=== PATIENT | female | born 1985 | race Two or more races ===

== ENCOUNTER 2025-04-03 20:42 | Observation (INO) | payer OTHER, SELFPAY ==
[2025-04-03 20:44] VITALS: BMI 35.4
--- NOTE | 2025-04-03 20:56 | XR_ITS ---
EXAMINATION: AP chest single view TECHNIQUE: AP portable upright chest single view Date and time: April 03, 2025, 2140 hours INDICATIONS: Stroke alert today FINDINGS: No significant cardiac enlargement No aspiration pneumonia. The osseous structures are intact IMPRESSION: No active disease
--- NOTE | 2025-04-03 20:56 | XR_ITS ---
Examination: CT brain head without contrast. 2-D sagittal coronal reconstructions Date and time of exam: April 03, 2025, 2108 hours INDICATION: Stroke alert, onset left-sided body numbness and slurred speech beginning 1 hour ago CTDI: vol (mGy): 53.8 DLP: (mGycm): 1029 Technique: Multiple CT axial sections of the brain have been obtained, 5 mm slice thickness. Contrast has not been administered. 2-D sagittal, coronal reconstructions have been obtained Low dose protocols were performed. One or more of the following dose reduction techniques were used; automated exposure control, adjustment of the mA and/or KV according to patient size, use of iterative reconstruction technique. Findings: No significant ventricular enlargement. Intra-axial or extra-axial hemorrhage density is not seen. No mass effect or midline shift Basal cisterns are not remarkable. Fourth ventricle is midline. Cranial vault intact. Impression: Negative for acute hemorrhage, mass effect or midline shift
--- NOTE | 2025-04-03 20:56 | XR_ITS ---
Examination: CTA carotids with intravenous contrast CTA brain, head with intravenous contrast. 2-D sagittal, coronal reconstructions. 3-D reconstructions. Exam date and time: April 03, 2025, 2115 hours INDICATIONS: Stroke alert, onset left-sided body numbness and speech difficulties beginning 1 hour ago CTDI: vol (mGy) 11.6 DLP: (mGycm) 435 Technique: Multiple CTA axial brain, head carotid images post intravenous contrast injection 75 cc, [id number]. 2-D sagittal, coronal reconstructions. 3-D reconstructions, 3-D post processing including vascular maximum intensity projection images. Low dose protocols were performed. One or more of the following dose reduction techniques were used; automated exposure control, adjustment of the mA and/or KV according to patient size, use of iterative reconstruction technique. Findings: No significant common carotid carotid bifurcation or internal carotid artery stenoses Dominant left vertebral artery with no critical vertebral artery stenoses in the neck No cerebral large vessel arterial occlusions or thrombus IMPRESSION: No significant neck arterial stenoses No cerebral large vessel arterial occlusions or thrombus As clinically warranted, brain MRI follow-up would best assess for demyelinating disease, acute ischemic change
--- NOTE | 2025-04-03 20:58 | PD.EDNEURO ---
Neuro Symptoms Deficit-RME/HPI General Chief Complaint: General Adult/Misc Complain Stated Complaint: L SIDE NUMBNESS AND SPEACH PROB 1 MIN Time Seen by Provider: 04/03/25 20:56 Arrival date/time: 04/03/25 20:42 RME / HPI RME / HPI Narrative: See MDM for Dr. Coronel's HPI documentation. Related Data Previous Rx's ?Medication ?Instructions ?Recorded Acetaminophen With Codeine 1 tab PO [id number] ##14 01/13/13 (Tylenol W-Codeine #3 Tablet) Allergies Allergy/AdvReac Type Severity Reaction Status Date / Time No Known Allergies Allergy Uncoded 04/03/25 20:47 Review of Systems Review of Systems Systems Reviewed: All systems reviewed, normal except as documented ED Exam Narrative Physical exam: See MDM for Dr. Coronel's physical exam documentation. Course Course Course Narrative: 2055: Stroke alert initiated. Quality Measures none Orders Category Date Time Status Admit to Inpatient Status Routine Admission 04/03/25 22:45 Active Patient Condition Routine Admission 04/03/25 22:45 Ordered Activity as Tolerated Routine Care 04/03/25 22:46 Ordered Bedside Blood Glucose NOW Care 04/03/25 20:56 Active COVID-19 Screening Questionnaire NOW Care 04/03/25 22:20 Active Pantograph Setter NOW Care 04/03/25 20:56 Active Continuous Pulse Oximetry NOW Care 04/03/25 20:56 Completed Decision to Admit X1 Care 04/03/25 22:20 Completed EKG (ED ONLY) *Do not use* NOW Care 04/03/25 20:56 Completed Insert IV NOW Care 04/03/25 20:56 Active NIH Stroke Scale now Care 04/03/25 20:56 Active NPO NOW Care 04/03/25 20:56 Active Neuro Check Q4H Care 04/03/25 22:45 Active Notify provider NEEDED Care 04/03/25 22:45 Active Nurse Swallow Screen x1 Care 04/03/25 20:56 Active Straight [In and Out Catheter] X1 Care 04/03/25 20:57 Active Consult to Neurology / Tele-Neurology Routine Cons 04/03/25 20:56 Active Referral Physical Therapy Routine Cons 04/03/25 22:49 Active CA echo doppler complete Routine Exams 04/03/25 22:[address] angio stroke protocol Stat Exams 04/03/25 20:[address] stroke protocol Stat Exams 04/03/25 20:56 Completed EKG (ED Only) Stat Exams 04/03/25 20:56 Ordered MR stroke protocol brain wwo with MRA head and neck Exams 04/03/25 Ordered Stat XR chest 1V portable Stat Exams 04/03/25 20:56 Completed A1C [Glycohemoglobin w (eAG)] AM DRAW Lab 04/04/25 05:00 Ordered Alcohol, Blood Medical Stat Lab 04/03/25 21:02 Completed Arterial Blood Gas Stat Lab 04/03/25 20:56 Ordered B-Type Natriuretic Peptide Stat Lab 04/03/25 21:02 Completed Basic Metabolic Panel AM DRAW Lab 04/04/25 05:00 Ordered Basic Metabolic Panel AM DRAW Lab 04/05/25 05:00 Ordered Basic Metabolic Panel AM DRAW Lab 04/06/25 05:00 Ordered CBC AM DRAW Lab 04/04/25 05:00 Ordered CBC AM DRAW Lab 04/05/25 05:00 Ordered CBC AM DRAW Lab 04/06/25 05:00 Ordered CBC Stat Lab 04/03/25 21:02 Completed Comprehensive Metabolic Panel Stat Lab 04/03/25 21:02 Completed Drug Screen,Urine Stat Lab 04/03/25 22:14 Completed Drug Screen,Urine Stat Lab 04/03/25 22:51 Ordered HCG,Qualitative Serum Stat Lab 04/03/25 21:02 Completed Lipid Panel AM DRAW Lab 04/04/25 05:00 Ordered Magnesium AM DRAW Lab 04/04/25 05:00 Ordered Magnesium AM DRAW Lab 04/05/25 05:00 Ordered Magnesium AM DRAW Lab 04/06/25 05:00 Ordered Magnesium Stat Lab 04/03/25 21:02 Completed Partial Thromboplastin Time Stat Lab 04/03/25 21:02 Completed Phosphorous AM DRAW Lab 04/04/25 05:00 Ordered Phosphorous AM DRAW Lab 04/05/25 05:00 Ordered Phosphorous AM DRAW Lab 04/06/25 05:00 Ordered Prothrombin Time with INR Stat Lab 04/03/25 21:02 Completed TSH [Thyroid Stimulating Hormone] Stat Lab 04/03/25 21:02 Completed Troponin I AM DRAW Lab 04/04/25 05:00 Ordered Troponin I Stat Lab 04/03/25 21:02 Completed Urinalysis, C/S if Indicated Stat Lab 04/03/25 22:14 Completed Acetaminophen Tab [Tylenol Tab] Med 04/03/25 22:45 Active 650 mg PO Q6H PRN Acetaminophen Tab [Tylenol Tab] Med 04/03/25 22:45 Active 650 mg PO Q6H PRN Aspirin Chew Med 04/03/25 21:54 Discontinued 324 mg PO X1 ONE Heparin Inj Med 04/04/25 06:00 Active 5,000 unit SC Q8HR Labetalol IV [Trandate IV] Med 04/03/25 20:56 Discontinued 10 mg IVP Q15M PRN Ondansetron Inj [Zofran Inj] Med 04/03/25 20:56 Active 4 mg IVP Q4HR PRN Ondansetron Inj [Zofran Inj] Med 04/03/25 22:45 Active 4 mg IVP Q6H PRN Sodium Chloride 0.9% 1000 ml [Ns] 1,000 ml Med 04/03/25 21:00 Active IV Q10H Code Status Routine Oth 04/03/25 22:45 Ordered Oxygen Delivery NOW RT 04/03/25 20:56 Active Vital Signs Vital signs: Vital Signs Temperature 99.3 F 04/03/25 21:01 Pulse Rate 86 04/03/25 21:01 Respiratory Rate 20 04/03/25 21:01 Blood Pressure 159/80 H 04/03/25 21:01 Pulse Oximetry (%) 98 04/03/25 21:01 Oxygen Delivery Method Room Air 04/03/25 21:01 Neuro Symptoms / Deficit MDM Narrative MDM Narrative:: This section includes all my notes and documentations, including HPI, PE, and ED course. Elbert Coronel MD HPI: 39-year-old female with aphasia and left arm/leg weakness and numbness 1 hour ago that lasted several minutes. Currently, she feels back to normal. No other complaints. ROS: All negative except as documented in HPI. Physical Exam: General: Alert and oriented. No acute distress when remaining still. Eyes: Conjunctivae and lids clear. PERRL. EOMI. ENT: No nasal congestion. Neck: Supple. No carotid bruit. No JVD. Heart: RRR. Lungs: No respiratory distress. Good air movement. No rhonchi, wheezing, rales. Abdomen: Soft and nontender. Normal bowel sounds. No distension. No rebound or guarding. Back: No CVA tenderness. Skin: Warm and dry. Neuro: Alert and oriented X 3. Cranial nerves II to XII grossly normal. No peripheral motor deficits. I reviewed all diagnostic test results. My interpretation of the EKG is sinus rhythm with nonspecific ST-T changes. My interpretation of the chest x-ray is unremarkable. My review of the CT head report is unremarkable. My review of the CT angio head neck report is unremarkable. Blood/urine tests are unremarkable. At this point, diagnoses include: Strokelike symptoms. Treatment here included: ASA I discussed the case with our teleneurologist. About the presentation and exam and diagnostics and treatments here. Recommended admission to hospitalist service for further care. I discussed the case with our hospitalist. About the presentation and exam and diagnostics and treatments here. And need of further care in the hospital. Will accept the patient. Elbert Coronel MD Patient data External records reviewed:: [facility] previous records (Per chart review, patient has no previous ED visits or admissions to this facility.) Clinical information provided by:: patient Social determinants that could affect healthcare access:: none Patient has the following chronic illnesses:: none How is presenting disease/condition affected by chronic disease/condition?: no chronic disease Evaluation data The following diagnostics were reviewed and interpreted by me:: lab results, radiology exam(s) and EKG tracing(s) (My interpretation of the EKG is: Sinus rhythm (82 bpm) with nonspecific ST-T changes. Elbert Coronel MD) Lab and/or radiology exams considered but not ordered:: none Interpretation Summary: I reviewed all diagnostic test results. My interpretation of the EKG is sinus rhythm with nonspecific ST-T changes. My interpretation of the chest x-ray is unremarkable. My review of the CT head report is unremarkable. My review of the CT angio head neck report is unremarkable. Blood tests are unremarkable. Medications / Prescriptions Medications or Prescriptions considered but not ordered:: none Medication administrations:: Medication Administration History Acetaminophen (Acetaminophen 325 Mg Tablet) 650 mg PO Q6H PRN PRN Reason: Fever >100.3 Stop: 05/03/25 22:44 Acetaminophen (Acetaminophen 325 Mg Tablet) 650 mg PO Q6H PRN PRN Reason: PAIN SCALE 1-3 (mild Stop: 05/03/25 22:44 Heparin Sodium (Porcine) (Heparin Sod Inj 5000 Unit/Ml Vial) 5,000 unit SC Q8HR JAY JAY Stop: 04/18/25 05:59 Sodium Chloride (Ns) 1,000 mls @ 100 mls/hr IV Q10H JAY JAY Stop: 05/03/25 20:59 Last Admin: 04/03/25 21:39 Dose: 100 mls/hr Documented By: EE Ondansetron HCl (Ondansetron Inj 2 Mg/Ml Inj 2 Ml) 4 mg IVP Q4HR PRN PRN Reason: NAUSEA OR VOMITING Stop: 05/03/25 20:55 Ondansetron HCl (Ondansetron Inj 2 Mg/Ml Inj 2 Ml) 4 mg IVP Q6H PRN; Protocol PRN Reason: NAUSEA OR VOMITING Stop: 05/03/25 22:44 Discontinued Medications Aspirin (Aspirin 81 Mg Chew) 324 mg PO X1 ONE Stop: 04/03/25 21:55 Last Admin: 04/03/25 22:44 Dose: 324 mg Documented By: AMOR Labetalol HCl (Labetalol Inj 5 Mg/Ml Vial 20 Ml) 10 mg IVP Q15M PRN PRN Reason: HYPER IV fluid Aspirin Consultations Consultation(s) initiated? (list below): Yes Consultation #1 (Physician, Specialty, Details): I discussed the case with our teleneurologist. About the presentation and exam and diagnostics and treatments here. Recommended admission to the hospitalist service for further care. Consultation #2 (Physician, Specialty, Details): I discussed the case with our hospitalist. About the presentation and exam and diagnostics and treatments here. And need of further care in the hospital. Will accept the patient. Diagnosis Neuro Differential Diagnosis: convulsions, subarachnoid hemorrhage, peripheral neuropathy, cerebrovascular accident and transient cerebral ischemia Most likely diagnosis given after review of the tests above:: Strokelike symptoms Admission Indicated Admission indicated?: indicated Explain why admission is indicated or not indicated:: Strokelike symptoms Admission Request Was there a request for admission?: Yes Admission Attestation Admission request attestation: Discussed case with [] from Hospitalist service regarding admission. Discussed patients ED course, exam findings, labs, and radiology results. The Hospitalist [agrees,declines] to accept the patient for admission. Disposition Plan Disposition Plan: Admit Critical Care Time Critical Care Time Critical Care Time: Yes Total Critical Care Time (min.): 35 Attestation: Due to a high probability of clinically significant, life threatening deterioration, the patient required my highest level of preparedness to intervene emergently and I personally spent this critical care time directly and personally managing the patient. This critical care time included obtaining a history; examining the patient; ordering and review of studies; arranging urgent treatment with development of a management plan; evaluation of patient's response to treatment; frequent reassessment; and discussions with family and other providers. It was exclusive of separately billable procedures and treating other patients and teaching time. Elbert Coronel MD Discharge Plan Plan Patient Disposition: Admit Acute Care w/in Hospital Prescriptions/Referrals Prescriptions/Med Rec: No Action Acetaminophen With Codeine (Tylenol W-Codeine #3 Tablet) 1 TAB tablet 1 tab PO [id number] Qty: 14 0RF Problem List Clinical Impression: Stroke-like symptoms Patient/Caregiver Discharge Instructions Print Language: Nam[place]ian Stand Alone Forms: Kait Award Info., Patient Portal Info Letter
[2025-04-03 21:01] VITALS: BP 159/80; PULSE 86; RESP 20; TEMP 37.4; O2SAT 98
[2025-04-03 21:06] LABS: Basophils # (Auto) 0.1 Thou/mm3 (0.0-0.2); Basophils % (Auto) 0 % (0-2.5); Eosinophils # (Auto) 0.1 Thou/mm3 (0.0-0.5); Eosinophils % (Auto) 1 % (0-10); Hematocrit 39.5 % (36.0-46.0); Hemoglobin 13.0 g/dL (12.0-16.0); Immature Granulocytes Auto 0.03 Thou/mm3 (0.00-0.00); Lymphocytes # (Auto) 3.2 Thou/mm3 (1.0-4.8); Lymphocytes % (Auto) 28 % (10-50); Mean Corpuscular HGB Conc 32.9 g/dl (31.0-37.0); Mean Corpuscular Hemoglobin 26.9 pg (25.0-35.0); Mean Corpuscular Volume 82 fL (80-100); Monocytes # (Auto) 0.7 Thou/mm3 (0.0-0.8); Monocytes % (Auto) 6 % (0-12); Neutrophils # (Auto) 7.2 Thou/mm3 (1.8-7.7); Neutrophils % (Auto) 64 % (37-80); Nucleated Red Blood Cell # 0.00 Thou/mm3 (0.00-0.00); Nucleated Red Blood Cell % 0 /100 WBC (0); Platelet Count 417 Thou/mm3 (140-440); RDW Standard Deviation 41.3 fL (36.4-46.3); Red Blood Count 4.84 Miln/mm3 (4.00-5.20); White Blood Count 11.3 Thou/mm3 (3.6-11.0)
--- NOTE | 2025-04-03 21:26 | PC.NURSE ---
pt was driving home at 1999 and had a sudden onset of left sided weakness denies any other symptoms or medical history
[2025-04-03 21:34] VITALS: PULSE 78; RESP 18; RESP 97
[2025-04-03 21:35] VITALS: BP 165/78; PULSE 82; RESP 18; TEMP 37.3; O2SAT 99
[2025-04-03 21:38] LABS: HCG,Qualitative Serum Negative
[2025-04-03] MEDS: SODIUM CHLORIDE 0.9% 1000 ML 1,000 ML 100 ML IV (21:39)
[2025-04-03 21:43] LABS: INR 0.9 (0.9-1.3); Partial Thromboplastin Time 28.9 Seconds (22.0-36.0); Prothrombin Time 10.0 Seconds (9.0-12.2)
[2025-04-03 21:45] LABS: B-Type Natriuretic Peptide < 20 pg/mL (0-100)
[2025-04-03 21:52] LABS: Alanine Aminotransferase 31 U/L (10-49); Albumin, Serum 4.8 gm/dL (3.5-5.0); Albumin/Globulin Ratio 1.6 (1.2-2.2); Alcohol, Blood Medical < 3.0 mg/dL (0-10.0); Alkaline Phosphatase 100 U/L (46-116); Anion Gap 9 (7-16); Aspartate Amino Transferase 24 U/L (0-34); BUN/Creatinine Ratio 9 Ratio (12-20); Bilirubin,Total 0.4 mg/dL (0.3-1.2); Blood Urea Nitrogen 7 mg/dL (9-23); Calcium 9.1 mg/dL (8.3-10.6); Calcium (Corrected) 9.1 mg/dL (8.5-10.1); Carbon Dioxide 27.7 mMol/L (20.0-31.0); Chloride 107 mMol/L (98-107); Creatinine (Component) 0.8 mg/dL (0.6-1.3); Estimated Creatinine Clearance 107.5 mL/min (>60); Globulin 3.0 gm/dL (2.3-3.5); Glucose 134 mg/dL (74-106); Magnesium 2.1 mg/dL (1.6-2.6); Osmolality,Calculated 286 (275-295); Potassium 3.4 mMol/L (3.4-5.1); Sodium 144 mMol/L (136-145); Thyroid Stimulating Hormone 1.98 uIU/mL (0.55-4.78); Total Protein 7.8 gm/dL (5.7-8.2); Troponin I < 0.020 ng/mL (0.0-0.045); eGFR > 60 See Note
--- NOTE | 2025-04-03 22:00 | PD.TNEURO ---
Tele Neuro Consultation Consultation Date 04/03/25 Most Recent Vital Signs Last Vital Signs Temp 99.1 F 04/03/25 21:35 Pulse 82 04/03/25 21:35 Resp 18 04/03/25 21:35 BP 165/78 H 04/03/25 21:35 Pulse Ox 99 04/03/25 21:35 O2 Del Method Room Air 04/03/25 21:35 Laboratory-Coagulation Panel PT 10.0 Seconds (9.0-12.2) 04/03/25 21:02 INR 0.9 (0.9-1.3) 04/03/25 21:02 APTT 28.9 Seconds (22.0-36.0) 04/03/25 21:02 Consultation Narrative [facility] Patient Name:???Sonya Cloud Date of :???1985 Identification Number:??? Date of Service:???04/03/2025 20:57:26 Diagnosis:?R29.818 - Transient neurological symptoms Impression: ?This is a 39 y/o RH woman with no known vascular risk factors. She was well until 8 pm today when, while driving, her left arm started shaking. Then her left side went numb (face, arm, and leg), and then it felt very cold. She then lost her speech entirely for a minute or two. She pulled the car over and felt lightheaded and developed a frontal headache. She stayed there about 30 minutes because she was scared to drive. She feels normal now except for a residual frontal headache. There was no nausea, photophobia, or phonophobia. ?She has been having blurry vision for the past one month or so and this has not been evaluated. She does not see a physician. ? ?#1 Spell of left upper extremity shaking, left hemibody paresthesias, and speech arrest, followed by frontal headache ?#2 Hypertension ?#3 Leukocytosis ? ?Differential diagnosis includes focal seizure with preserved awareness, TIA, and atypical migraine. ?She will need both an MRI brain WITH and without gadolinium and a routine EEG. ?Please give a full dose aspirin after a bedside swallow study. ?Continuous cardiac monitoring. ?Strongly advise PCP establishment - she is of the age to start regular screening for cerebrovascular risk factors and malignancy and has no physician. Her mother age 50 of cerebrovascular disease. ? Our recommendations are outlined below. Recommendations: ? Stroke/Telemetry Floor ? Neuro Checks (Q4) ? Bedside Swallow Eval ? DVT Prophylaxis ? IV Fluids, Normal Saline ? Head of Bed 30 Degrees ? Euglycemia and Avoid Hyperthermia (PRN Acetaminophen) ? Antihypertensives PRN if Blood pressure is greater than 220/120 or there is a concern for End organ damage/contraindications for permissive HTN. If blood pressure is greater than 220/120 give labetalol PO or IV or Vasotec IV with a goal of 15% reduction in BP during the first 24 hours. Sign Out: ? Discussed with Emergency Department Provider Advanced Imaging:Advanced imaging has been ordered. Results pending. Metrics: Last Known Well: 04/03/2025 20:00:00 Dispatch Time: 04/03/2025 20:57:26 Arrival Time: 04/03/2025 20:42:00 Initial Response Time: 04/03/2025 21:09:46Symptoms: left sided shaking, then numbness and coldness, lost speech briefly, lightheaded, followed by headache. Initial patient interaction: 04/03/2025 21:28:40 NIHSS Assessment Completed: 04/03/2025 21:33:19Patient is not a candidate for Thrombolytic. Thrombolytic Medical Decision: 04/03/2025 21:33:19Patient was not deemed candidate for Thrombolytic because of following reasons: Stroke severity too mild (non-disabling) . CT Head: I personally reviewed all the CT images that were available to me and it showed: no hemorrhage, hyperdense vessel sign, or definite acute ischemic changes. Primary Provider Notified of Diagnostic Impression and Management Plan on: 04/03/2025 21:50:38 History of Present Illness:Patient is a 39 year old Female. Patient was brought by private transportation with symptoms of left sided shaking, then numbness and coldness, lost speech briefly, lightheaded, followed by headache. This is a 39 y/o RH woman with no known vascular risk factors. She was well until 8 pm today when, while driving, her left arm started shaking. Then her left side went numb (face, arm, and leg), and then it felt very cold. She then lost her speech entirely for a minute or two. She pulled the car over and felt lightheaded and developed a frontal headache. She stayed there about 30 minutes because she was scared to drive. She feels normal now except for a residual frontal headache. There was no nausea, photophobia, or phonophobia. She has been having blurry vision for the past one month or so and this has not been evaluated. She does not see a physician. ? Past Medical History: ?There is no history of Hypertension ?There is no history of Diabetes Mellitus ?There is no history of Stroke ?There is no history of Seizures ?There is no history of Migraine Headaches Medications: No Anticoagulant use? No Antiplatelet use Reviewed EMR for current medications Allergies:? Reviewed Social History: Smoking: No Drug Use: No Family History: There is no family history of premature cerebrovascular disease pertinent to this consultation ROS : 14 Points Review of Systems was performed and was negative except mentioned in HPI. Past Surgical History: There Is No Surgical History Contributory To Today?s Visit ? Examination: BP(165/78),?Pulse(86),?Blood Glucose(168) 1A: Level of Consciousness - Alert; keenly responsive?+ 0 1B: Ask Month and Age - Both Questions Right?+ 0 1C: Blink Eyes & Squeeze Hands - Performs Both Tasks?+ 0 2: Test Horizontal Extraocular Movements - Normal?+ 0 3: Test Visual Youssef - No Visual Loss?+ 0 4: Test Facial Palsy (Use Grimace if Obtunded) - Normal symmetry?+ 0 5A: Test Left Arm Motor Drift - No Drift for 10 Seconds?+ 0 5B: Test Right Arm Motor Drift - No Drift for 10 Seconds?+ 0 6A: Test Left Leg Motor Drift - No Drift for 5 Seconds?+ 0 6B: Test Right Leg Motor Drift - No Drift for 5 Seconds?+ 0 7: Test Limb Ataxia (FNF/Heel-Recinos) - No Ataxia?+ 0 8: Test Sensation - Normal; No sensory loss?+ 0 9: Test Language/Aphasia - Normal; No aphasia?+ 0 10: Test Dysarthria - Normal?+ 0 11: Test Extinction/Inattention - No abnormality?+ 0 NIHSS Score:?0 NIHSS Free Text :?reduced sensation left face and leg Pre-Morbid Modified [place] Scale: 0 Points = No symptoms at all Spoke with :?ED physician This consult was conducted in real time using interactive audio and video technology. Patient was informed of the technology being used for this visit and agreed to proceed. Patient located in hospital and provider located at home/office setting. Patient is being evaluated for possible acute neurologic impairment and high probability of imminent or life-threatening deterioration. I spent total of 35 minutes providing care to this patient, including time for face to face visit via telemedicine, review of medical records, imaging studies and discussion of findings with providers, the patient and/or family. Dr Soraya Erickson [facility] For Inpatient follow-up with [facility] physician please call [facility] at . As we are not an outpatient service for any post hospital discharge needs please contact the hospital for assistance. If you have any questions for the [facility] physicians or need to reconsult for clinical or diagnostic changes please contact us via [facility] at . Signature :Angeline Erickson ?
[2025-04-03 22:22] LABS: Collection Type, Urine Clean Catch
[2025-04-03 22:30] LABS: Bacteria,Urine Rare; Bilirubin,Urine Negative (Negative); Blood,Urine Negative (Negative); Clarity,Urine Clear (Clear/Hazy); Color,Urine Lt-Yellow (Lt Yel-Yel); Culture Indicated,Urine Not Indicated; Glucose, Urine Negative (Negative); Ketones,Urine Negative (Negative); Leukocyte Esterase,Urine Negative (Negative); Nitrite,Urine Negative (Negative); PH,Urine 6.5 (5.0-7.0); Protein,Urine Negative (Neg - Trace); RBC,Urine 1 /hpf (0-3); Squamous Epithelial Cell,Urine 1 /hpf (0-5); Urobilinogen,Urine Negative mg/dL (0.0-1.0); WBC,Urine < 1 /hpf (0-5)
[2025-04-03 22:34] LABS: Amphetamine/Methamp Scrn,U Negative (Negative); Barbiturate Screen,Urine Negative (Negative); Benzodiazepines Screen,Urine Negative (Negative); Benzoylecgonine Screen, Ur Negative (Negative); Fentanyl Screen,Urine Negative (Negative); Opiate Screen,Urine Negative (Negative); THC Screen,Urine Negative (Negative)
[2025-04-03 22:37] LABS: Specific Gravity,Urine < 1.005 (1.001-1.035)
[2025-04-03] MEDS: ASPIRIN 81 MG CHEW 324 MG PO (22:44)
--- NOTE | 2025-04-03 22:48 | ECHO_ITS ---
Transthoracic Echo Report Ht (in): 65 Wt (lb): 257 Exam Location: Echo Lab Status: Inpatient Supervisor [employer]: Heydi De Dios Indications: Procedure Performed: BP: 111 / 73 HR: 96 MEASUREMENTS (Male / Female) Normal Values 2D ECHO LV Diastolic Diameter PLAX 4.5 cm 4.2 - 5.9 / 3.9 - 5.3 cm LV Systolic Diameter PLAX 3.0 cm IVS Diastolic Thickness 1.3 cm 0.6 - 1.0 / 0.6 - 0.9 cm LVPW Diastolic Thickness 1.2 cm 0.6 - 1.0 / 0.6 - 0.9 cm LV Relative Wall Thickness 0.6 LVOT Diameter 1.8 cm LV Ejection Fraction MOD BP 63.5 % >= 55 % LV Cardiac Index MOD BP 2927.5 cm?/min?m? LV Ejection Fraction MOD 4C 62.8 % LV Cardiac Index MOD 4C 2325.1 cm?/min?m? LV Ejection Fraction 4C AL 64.0 % LV Cardiac Index 4C AL 2451.0 cm?/min?m? LV Ejection Fraction MOD 2C 56.2 % LV Cardiac Index MOD 2C 2656.6 cm?/min?m? LV Ejection Fraction 2C AL 58.5 % LV Cardiac Index 2C AL 2754.9 cm?/min?m? LA Volume Index 21.3 cm?/m? 16 - 28 cm?/m? DOPPLER AV Peak Velocity 135.0 cm/s AV Peak Gradient 7.3 mmHg AV Mean Gradient 4.0 mmHg AV Velocity Time Integral 29.7 cm LVOT Peak Velocity 107.0 cm/s LVOT Peak Gradient 4.6 mmHg LVOT Velocity Time Integral 28.9 cm LVOT Cardiac Index 2973.7 cm?/min?m? AV Area Cont Eq vti 2.5 cm? AV Area Cont Eq pk 2.0 cm? MV Area PHT 3.1 cm? Mitral E Point Velocity 86.3 cm/s Mitral A Point Velocity 77.6 cm/s Mitral E to A Ratio 1.1 LV E' Lateral Velocity 12.9 cm/s Mitral E to LV E' Lateral Ratio 6.7 LV E' Septal Velocity 11.4 cm/s Mitral E to LV E' Septal Ratio 7.6 PV Peak Velocity 100.0 cm/s PV Peak Gradient 4.0 mmHg FINDINGS Left Ventricle Normal left ventricular size and systolic function with no obvious regional wall motion abnormalities. Mild LVH. Normal left ventricular diastolic filling pattern for age. The ejection fraction is visually estimated at 55-60 %. Right Ventricle The right ventricle is normal in size and systolic function. Left Atrium The left atrium is normal by two-dimensional, color flow and Doppler imaging with no structural abnormalities, no thrombus formation present. Right Atrium The right atrium is normal by two-dimensional imaging, color flow and Doppler imaging with no structural abnormalities, no thrombus formation present. Atrial Septum The interatrial septum appears normal with no evidence of a shunt. Aorta The aorta is normal by two-dimensional, color flow and Doppler interrogation. Mitral Valve The mitral valve is normal by two-dimensional, color flow and Doppler interrogation. There is no significant mitral valve regurgitation, stenosis or prolapse. Aortic Valve The aortic valve is not well visualized. Tricuspid Valve The tricuspid valve is normal by two-dimensional, color flow and Doppler interrogation. There is trace tricuspid valve regurgitation. Pulmonic Valve The pulmonic valve is not well visualized. There is no significant pulmonic valve regurgitation. Vessels The pulmonary artery appears normal. The inferior vena cava pulmonary and hepatic veins appear normal. Pericardium The pericardium is normal by two-dimensional imaging. There is no significant pericardial effusion. CONCLUSIONS Indication: Stroke Agitated saline contrast was performed, with no evidence of intra-cardiac shunt. Normal left ventricular size. Mild LVH. Normal LV diastolic function. Estimated EF at 55-60 %. The RV is normal in size and systolic function. Trace TR. Marlene Simmons (Electronically Signed) Final Date: 05 April 2025 17:22
--- NOTE | 2025-04-03 22:50 | PD.RESHP ---
Documentation for date of: 04/03/25 HPI History of Present Illness History of present illness: Ms. Cloud is a 39 y/o female with no PMH who presents to the ED 04/03 after an episode of left arm shaking followed by left-sided paresthesias and weakness that lasted about 1 minute while she was driving. Symptoms now resolved. LKAW 20:00 on 04/03. NIHSS 0. Associated with lightheadedness, b/l frontal headache that followed this episode. Patient continues to have frontal headache, 09/23 at time of interview. Denies palpitations, syncope, presyncope, chest pain/pressure, nausea, vomiting, vertigo, anxiety, shortness of breath. Denies hx migraines, seizures, tremors, recent illnesses/hospitalizations. She has previously had episodes of palpitations but not during this episode. Of note, patient has been having b/l blurry vision for the past ~1 month, has not sought medical attention for this. The blurry vision came on suddenly, not gradually. No personal or family hx autoimmune diseases. Denies floaters, pain with EOM. Does not follow with PCP, specialists. Has not seen optometry/ophthalmology recently. Does not wear glasses/contacts. ED course: BP 159/80 --> 165/78. BG 134. Labs significant for WBC 11.3. Coags, TSH, troponin, CXR unremarkable. Code stroke was called, consulted tele neuro. NIHSS 0. CT head negative for acute hemorrhage. CTA negative for LVO. Given 1L NS in ED. PMHx: none Allergies: NKDA Home meds: none SgHx: C section SHx: Denies tobacco, ETOH, recreational drug use. FHx: Mom - CVA at age 48 x2, 51, at age 54 (pt does not know if mother had risk factors) Review of Systems Review of Systems Narrative Review of Systems: 14 point ROS negative other than HPI Exam Vital Signs Temp Pulse Resp BP Pulse Ox O2 Del Method 99.1 F 82 18 165/78 H 99 Room Air 04/03/25 21:35 04/03/25 21:35 04/03/25 21:35 04/03/25 21:35 04/03/25 21:35 04/03/25 21:35 Narrative Exam General: No acute distress, well nourished Eye: PERRL, EOMI, normal conjunctiva, no scleral icterus HENT: Normocephalic, atraumatic, normal hearing, moist oral mucosa Neck: Supple, non-tender, no JVD, no lymphadenopathy Lungs: Clear to auscultation bilaterally, non-labored respirations, symmetric chest rise, no use of accessory muscles Heart: Normal S1 and S2, no S3 or S4 appreciated. Normal rate and regular rhythm, no murmurs, rubs gallops, or edema. Peripheral pulses intact bilaterally, capillary refill brisk distally Abdomen: Soft, non-tender, non-distended, normal bowel sounds. No guarding or rebound tenderness. Musculoskeletal: Normal range of motion and strength, no tenderness or swelling Skin: Skin is warm, dry, no rashes or lesions. Psychiatric: Cooperative, appropriate mood and affect Neurologic: Mental status: Orientation: Oriented to person, place, time, and situation Communication: Patient is cooperative and can follow simple instructions Language: Speech fluent, normal rate and volume, comprehension intact Cranial nerves: CN II: Visual pace intact CN III: Pupils equal, round, and reactive to light CN III, IV, : No gaze deviation, no nystagmus Horizontal pursuit: intact Vertical pursuit: intact Ptosis: none CN V: Facial sensation to light touch intact bilaterally at the forehead, cheeks, and jaw line CN VII: Face symmetric, no facial droop appreciated CN VIII: Able to hear and respond to conversation at normal volume, intact to finger rub CN IX, X: Palate elevation symmetric, uvula midline CN XI: Head turn and shoulder shrug strong, symmetric bilaterally CN XII: Normal tongue protrusion without deviation, no fasciculations Motor: Normal bulk and tone No atrophy No abnormal movements or fasciculations Muscle strength: Shoulder abduction: R 5/5 L 5/5 Elbow flexion: R 5/5 L 5/5 Elbow extension: R 5/5 L 5/5 Hip flexion: R 5/5 L 5/5 Hip extension: R 5/5 L 5/5 Knee flexion: R 5/5 L 5/5 Knee extension: R 5/5 L 5/5 Sensory: RUE: Light touch intact LUE: Light touch intact RLE: Light touch intact LLE: Light touch intact Cerebellum: RUE: No dysmetria (finger to nose) LUE: No dysmetria (finger to nose) RLE: No dysmetria (heel to dobbins) LLE: No dysmetria (heel to dobbins) Results: Labs 04/03/25 21:02 04/03/25 21:02 Labs: Short CBC 04/03/25 Range/Units 21:02 WBC 11.3 H (3.6-11.0) Thou/mm3 Hgb 13.0 (12.0-16.0) g/dL Hct 39.5 (36.0-46.0) % Plt Count 417 (140-440) Thou/mm3 BMP 04/03/25 21:02 Sodium 144 Potassium 3.4 Chloride 107 Carbon Dioxide 27.7 BUN 7 L Creatinine 0.8 Glucose 134 H Calcium 9.1 Cardiac Enzymes 04/03/25 Range/Units 21:02 Troponin I < 0.020 (0.0-0.045) ng/mL Liver Function 04/03/25 Range/Units 21:02 Total Bilirubin 0.4 (0.3-1.2) mg/dL AST 24 (0-34) U/L ALT 31 (10-49) U/L Alkaline Phosphatase 100 (46-116) U/L Albumin 4.8 (3.5-5.0) gm/dL Urine 04/03/25 Range/Units 22:14 Urine Color Lt-Yellow (Lt Yel-Yel) Urine Clarity Clear (Clear/Hazy) Urine pH 6.5 (5.0-7.0) Ur Specific [place] < 1.005 (1.001-1.035) Urine Protein Negative (Neg - Trace) Urine Glucose (UA) Negative (Negative) Quality Measures Quality Measures none Medications Home Medications and Allergies Home Medications ?Medication ?Instructions ?Recorded ?Confirmed ?Type No Known Home Medications 04/04/25 04/04/25 History Allergies Allergy/AdvReac Type Severity Reaction Status Date / Time No Known Allergies Allergy Uncoded 04/03/25 20:47 Visit Medications Acetaminophen (Acetaminophen 325 Mg Tablet) 650 mg PO Q6H PRN PRN Reason: Fever >100.3 Stop: 05/03/25 22:44 Acetaminophen (Acetaminophen 325 Mg Tablet) 650 mg PO Q6H PRN PRN Reason: PAIN SCALE 1-3 (mild Stop: 05/03/25 22:44 Sodium Chloride (Ns) 1,000 mls @ 100 mls/hr IV Q10H JAY JAY Stop: 05/03/25 20:59 Last Admin: 04/03/25 21:39 Dose: 100 mls/hr Labetalol HCl (Labetalol Inj 5 Mg/Ml Vial 20 Ml) 10 mg IVP Q15M PRN PRN Reason: HYPER Ondansetron HCl (Ondansetron Inj 2 Mg/Ml Inj 2 Ml) 4 mg IVP Q4HR PRN PRN Reason: NAUSEA OR VOMITING Stop: 05/03/25 20:55 Ondansetron HCl (Ondansetron Inj 2 Mg/Ml Inj 2 Ml) 4 mg IVP Q6H PRN; Protocol PRN Reason: NAUSEA OR VOMITING Stop: 05/03/25 22:44 Discontinued Medications Aspirin (Aspirin 81 Mg Chew) 324 mg PO X1 ONE Stop: 04/03/25 21:55 Last Admin: 04/03/25 22:44 Dose: 324 mg Assessment & Plan Plan Ms. Cloud is a 39 y/o female with no PMH who presents to the ED 04/03 after an episode of left arm shaking followed by left-sided paresthesias and weakness that lasted about 1 minute while she was driving. Symptoms now resolved. LKAW 20:00 on 04/03. NIHSS 0. Admitted for TIA workup. #Left sided paresthesias, weakness - resolved #Frontal headache Hx stroke/TIA: none Hx afib: none Smoking hx: none Initial symptoms: left-sided paresthesias and weakness, lasted 1 minute followed by frontal headache and lightheadedness FHx of stroke (mother) at age 48, unknown risk factors LKAW: 20:00 on 04/03 Initial NIHSS: 0 Inital BP: 159/80 EKG: pending Initial glucose: 134 UDS: pending A1C: pending Lipids: pending TSH: 1.98 Troponin: negative CT head w/o: negative for acute hemorrhage, midline shift, mass effect CTA head/neck w/: negative for LVO MRI/MRA w/ and w/o: pending TTE: pending Meds given: 1L NS ABCD2 score (risk of stroke after suspected TIA): 3 ASCVD: pending lipid panel Given 1L NS in ED. Passed bedside swallow test DDX: TIA, seizure, migraine with aura Plan: - Pending MRI stroke protocol, A1C, UDS, lipid panel, EKG, troponin, TTE - Pending Routine EEG - If TIA ABCD2 score <4 --> Single antiplatelet therapy. Started ASA 81 mg PO daily - Neuro Checks q4h - Antihypertensives PRN if Blood pressure is greater than 220/120 or there is a concern for End organ damage/contraindications for permissive HTN. If blood pressure is greater than 220/120 give labetalol PO or IV or Vasotec IV with a goal of 15% reduction in BP during the first 24 hours. - Aspiration Precautions, Head of bed 30 degrees - Euglycemia and avoid Hyperthermia - Consulted neuro, appreciate recs Checklist Dispo: Admit to tele for q4h neuro checks Diet: regular Bowel Reg: n/a VTE ppx: heparin subQ GI ppx: n/a Pain mgmt: Tylenol PRN Code status: limited - ok to do CPR, DNI Plan discussed with Dr. Jacinto and Dr. Laura Gutierrez MD PGY1 Attending Provider Attestation/Addendum 39-year-old obese female with no significant past medical history who was admitted after a code stroke. The patient said she was driving all of a sudden she felt numb on her left arm with some shaking. She felt numb on her left leg as well. She had a headache. She pulled over and after about 30 minutes she felt okay and proceeded to the emergency room. CT scan of the brain without contrast showed negative results. Patient has sinus rhythm. She still has elevated blood pressure. Her blood sugar is also elevated. Family history is significant for stroke affecting her mom. She does not smoke. She drinks alcohol occasionally. She does not take any medications. The patient will be admitted for stroke workup. I discussed with and supervised the resident physician who took care of this patient. I agree with the assessment and plan as above.
[2025-04-03 23:36] VITALS: BP 148/71; PULSE 76; RESP 18; TEMP 37.2; O2SAT 99
[2025-04-04] VITALS (8 sets, daily range): BP systolic 111–145; BP diastolic 64–86; PULSE 62–96; RESP 17–97; TEMP 35.9–36.7; O2SAT 94–99; BMI 42.8
[2025-04-04] MEDS: ACETAMINOPHEN 325 MG TABLET 650 MG PO ×3 (00:43→20:34)
--- NOTE | 2025-04-04 03:01 | EKG_ITS ---
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
--- NOTE | 2025-04-04 04:24 | RESP.EEG ---
EEG has been completed and is ready for MD interpretation
[2025-04-04] MEDS: HEPARIN SOD INJ 5000 UNIT/ML VIAL SC ×3 (05:43→21:18)
[2025-04-04 06:55] LABS: Basophils # (Auto) 0.1 Thou/mm3 (0.0-0.2); Basophils % (Auto) 1 % (0-2.5); Eosinophils # (Auto) 0.1 Thou/mm3 (0.0-0.5); Eosinophils % (Auto) 2 % (0-10); Hematocrit 35.3 % (36.0-46.0); Hemoglobin 11.8 g/dL (12.0-16.0); Immature Granulocytes Auto 0.03 Thou/mm3 (0.00-0.00); Lymphocytes # (Auto) 2.5 Thou/mm3 (1.0-4.8); Lymphocytes % (Auto) 29 % (10-50); Mean Corpuscular HGB Conc 33.4 g/dl (31.0-37.0); Mean Corpuscular Hemoglobin 27.3 pg (25.0-35.0); Mean Corpuscular Volume 82 fL (80-100); Monocytes # (Auto) 0.6 Thou/mm3 (0.0-0.8); Monocytes % (Auto) 7 % (0-12); Neutrophils # (Auto) 5.3 Thou/mm3 (1.8-7.7); Neutrophils % (Auto) 62 % (37-80); Nucleated Red Blood Cell # 0.00 Thou/mm3 (0.00-0.00); Nucleated Red Blood Cell % 0 /100 WBC (0); Platelet Count 254 Thou/mm3 (140-440); RDW Standard Deviation 41.9 fL (36.4-46.3); Red Blood Count 4.32 Miln/mm3 (4.00-5.20); White Blood Count 8.6 Thou/mm3 (3.6-11.0)
[2025-04-04 07:05] LABS: Anion Gap 12 (7-16); BUN/Creatinine Ratio 8 Ratio (12-20); Blood Urea Nitrogen 5 mg/dL (9-23); Calcium 8.3 mg/dL (8.3-10.6); Carbon Dioxide 23.3 mMol/L (20.0-31.0); Cardiac Risk Estimate 4.2 RATIO (3.7-5.6); Chloride 109 mMol/L (98-107); Cholesterol 162 mg/dL (132-200); Creatinine (Component) 0.6 mg/dL (0.6-1.3); Estimated Creatinine Clearance 159.3 mL/min (>60); Glucose 118 mg/dL (74-106); HDL Cholesterol 39 mg/dL (40-60); LDL Cholesterol,Calculated 105 mg/dL (0-130); Magnesium 2.0 mg/dL (1.6-2.6); Osmolality,Calculated 285 (275-295); Phosphorous 3.1 mg/dL (2.4-5.1); Potassium 3.6 mMol/L (3.4-5.1); Sodium 144 mMol/L (136-145); Triglycerides 88 mg/dL (30-150); Troponin I < 0.002 ng/mL (0.0-0.045); eGFR > 60 See Note
[2025-04-04 07:23] LABS: Glucose Estimated Average 117 mg/dL (80-131); Hemoglobin A1C 5.7 % Hgb (4.8-6.0)
[2025-04-04] MEDS: ASPIRIN EC 81 MG TABEC PO (08:40)
--- NOTE | 2025-04-04 09:27 | PC.SS ---
Follow up note: MRI and ECHO pending. Neuro recommendations pending.
--- NOTE | 2025-04-04 11:02 | ESPR_ITS ---
<Statement entered by Mik Goodwin MD - 04/04/25 16:50> Patient seen and assessed in hospital bed denies having any concerning symptoms at this time. Patient's neurologic deficits subsided within 2 minutes of onset prior to admission according to the patient. Patient denies having any neurologic deficits at this time and neurologic exam is largely negative. Patient apparently also has a cochlear implant as result we will need to obtain [facility] records in order to go forward with MRI brain. Will also contact neurology which has been consulted regarding possible CT head instead of MRI as suspicion for stroke is low at this time. Will follow-up with neurology recommendations and continue monitoring the patient for any acute changes. I have personally seen and examined the patient. I agree with the resident's assessment and plan as documented below. Mik Goodwin DO PGY-2 Internal Medicine - [facility] Documentation for date of: 04/04/25 Subjective Subjective Interval history: Patient seen at bedside. No acute overnight events. Patient denies any chest pain, shortness of breath, abdominal pain, nausea, vomiting, dizziness. Patient mentions has [address], inserted 2012 at [facility] however does not have records with her. Requested old medical records from [facility]. So for the time being MRI is on hold. EEG has been taken pending read by neurology. No neurological symptoms expressed by the patient's today. Exam Vital Signs Temp Pulse Resp BP Pulse Ox O2 Del Method 97.2 F 66 20 141/79 H 97 Room Air 04/04/25 08:00 04/04/25 08:00 04/04/25 08:00 04/04/25 08:00 04/04/25 08:00 04/04/25 08:00 Narrative Exam General: No acute distress, well nourished Eye: PERRL, EOMI, normal conjunctiva, no scleral icterus HENT: Normocephalic, atraumatic, normal hearing, moist oral mucosa Neck: Supple, non-tender, no JVD, no lymphadenopathy Lungs: Clear to auscultation bilaterally, non-labored respirations, symmetric chest rise, no use of accessory muscles Heart: Normal S1 and S2, no S3 or S4 appreciated. Normal rate and regular rhythm, no murmurs, rubs gallops, or edema. Peripheral pulses intact bilaterally, capillary refill brisk distally Abdomen: Soft, non-tender, non-distended, normal bowel sounds. No guarding or rebound tenderness. Musculoskeletal: Normal range of motion and strength, no tenderness or swelling Skin: Skin is warm, dry, no rashes or lesions. Psychiatric: Cooperative, appropriate mood and affect Neuro: Alert and oriented x 3, no focal neurologic deficits, cranial nerves II to XII intact, moving all 4 limbs Objective Labs 04/04/25 06:02 04/04/25 06:02 Labs: Laboratory Results - last 24 hr 04/03/25 04/03/25 04/04/25 21:02 22:14 06:02 WBC 11.3 H 8.6 RBC 4.84 4.32 Hgb 13.0 11.8 L Hct 39.5 35.3 L MCV 82 82 MCH 26.9 27.3 MCHC 32.9 33.4 RDW Std Deviation 41.3 41.9 Plt Count 417 254 D Neut % (Auto) 64 62 Lymph % (Auto) 28 29 [place] % (Auto) 6 7 Eos % (Auto) 1 2 Baso % (Auto) 0 1 Neut # (Auto) 7.2 5.3 Lymph # (Auto) 3.2 2.5 [place] # (Auto) 0.7 0.6 Eos # (Auto) 0.1 0.1 Baso # (Auto) 0.1 0.1 Immature Gran # (Auto) 0.03 H 0.03 H Absolute Nucleated RBC 0.00 0.00 Immature Gran % 0 0 Nucleated RBC % 0 0 PT 10.0 INR 0.9 APTT 28.9 Sodium 144 144 Potassium 3.4 3.6 Chloride 107 109 H Carbon Dioxide 27.7 23.3 Anion Gap 9 12 BUN 7 L 5 L Creatinine 0.8 0.6 Estim Creat Clear Calc 107.5 159.3 eGFR > 60 > 60 BUN/Creatinine Ratio 9 L 8 L Glucose [address] Glu mg/dL 117 Hemoglobin A1c 5.7 Calculated Osmolality 286 285 Calcium 9.1 8.3 Corrected Calcium 9.1 Phosphorus 3.1 Magnesium 2.1 2.0 Total Bilirubin 0.4 AST 24 ALT 31 Alkaline Phosphatase 100 Troponin I < 0.020 < 0.002 B-Natriuretic Peptide < 20 Total Protein 7.8 Albumin 4.8 Globulin 3.0 Albumin/Globulin Ratio 1.6 Triglycerides 88 Cholesterol 162 LDL Cholesterol, Calc 105 HDL Cholesterol 39 L Cholesterol/HDL Ratio 4.2 TSH 1.98 HCG, Qual Negative Ur Collection Type Clean Catch Urine Color Lt-Yellow Urine Clarity Clear Urine pH 6.5 Ur Specific [place] < 1.005 Urine Protein Negative Urine Glucose (UA) Negative Urine Ketones Negative Urine Blood Negative Urine Nitrite Negative Urine Bilirubin Negative Urine Urobilinogen (Auto) Negative Ur Leukocyte Esterase Negative Urine RBC 1 Urine WBC < 1 Ur Squamous Epith Cells 1 Urine Bacteria Rare Ur Culture Indicated? Not Indicated Urine Opiates Screen Negative Urine Fentanyl Screen Negative Ur Barbiturates Screen Negative U Amphetamin/Meth Scrn Negative U Benzodiazepines Scrn Negative U Cocaine Metab Screen Negative U Marijuana (THC) Screen Negative Ethyl Alcohol < 3.0 Quality Measures Quality Measures none Assessment & Plan Assessment Current Active Medications: Generic Name Dose Route Start Last Admin Trade Name Freq PRN Reason Stop Dose Admin Acetaminophen 650 mg 04/03/25 22:45 Acetaminophen 325 Mg Tablet PO 05/03/25 22:44 Q6H PRN Fever >100.3 Acetaminophen 650 mg 04/03/25 22:45 04/04/25 00:43 Acetaminophen 325 Mg Tablet PO 05/03/25 22:44 650 mg Q6H PRN Administration PAIN SCALE 1-3 (mild Aspirin 81 mg 04/04/25 09:00 04/04/25 08:40 Aspirin Ec 81 Mg Tabec PO 05/04/25 08:59 81 mg QDAY JAY JAY Administration Atorvastatin Calcium 40 mg 04/04/25 21:00 Atorvastatin Calcium 20 Mg Tablet PO 05/04/25 20:59 HS JAY JAY Heparin Sodium (Porcine) 5,000 unit 04/04/25 06:00 04/04/25 05:43 Heparin Sod Inj 5000 Unit/Ml Vial SC 04/18/25 05:59 5,000 unit Q8HR JAY JAY Administration Ondansetron HCl 4 mg 04/03/25 22:45 Ondansetron Inj 2 Mg/Ml Inj 2 Ml IVP 05/03/25 22:44 Q6H PRN NAUSEA OR VOMITING Protocol Plan 39 y/o female with no PMH presented to the ED 04/03 after an episode of left arm shaking followed by left-sided paresthesias and weakness that lasted about 1 minute while driving. Symptoms now resolved. LKAW 20:00 on 04/03. NIHSS 0. Admitted for TIA workup. #Left-sided paresthesias, weakness ? resolved #Frontal headache Sudden onset of left-sided paresthesias and weakness, lasting approximately 1 minute, followed by frontal headache and lightheadedness. FHx: Mother with stroke at age 48, unknown risk factors. CT head w/o contrast: Negative for acute hemorrhage, midline shift, or mass effect CTA head/neck w/: Negative for LVO ABCD2 score: 3 (intermediate risk) ASCVD: 0.4% 10y CVS risk - no statin needed Pending Routine EEG Plan: - Pending MRI stroke protocol, pending cochlear implant records from [facility] - ABCD2 score <4 --> Single antiplatelet therapy. Started ASA 81 mg PO daily - Neuro Checks q4h - Aspiration Precautions, Head of bed 30 degrees - Consulted neuro, appreciate recs Health Maintenance: Diet: regular GI prophylaxis: none DVT prophylaxis: heparin 5000u Antibiotics: none CODE STATUS: limited Disposition: Tele -> Obs Case discussed with my attending Dr. Martinez, and senior resident, Dr. Buddy Saunders MD PGY-1 Attending Provider Attestation/Addendum I, Constance Martinez, DO, attest that I was physically present for the beltre portions of the service and evaluated the patient with the resident and I reviewed and discussed the case with the resident and agree with the resident's findings and plans of care as documented above #Left sided parasthesias, rule out CVA vs. TIA vs Complex migraine vs. Pseudotumor cerebri vs focal seizure #Frontal headache #BMI 42.9 Patient is a 39 yo obese female who presented to the ED with sudden onset of paresthesias that began in her left arm, radiating up to the left side of her face and LE. Patient was driving at the time and stated that she began having uncontrollable shaking of the left arm that lasted about 2 min, followed by numbness. She also reported mild headache following the episode. She states that her vision has been occasionally have blurry vision in the past 2 weeks. Patient denies any previous episodes in the past. She states her symptoms have since resolved, but complains of mild headache currently. Patient denies history of migraines, but states that she suffered from headaches throughout . MRI had been ordered in the past, but she stated that she could not tolerate the MRI due to claustrophobia. Will premedicate with Ativan prior to MRI. Neurology consulted. EEG was done this morning. Will f/u with Neurology recommendations. DDX include TIA, CVA, complex migraine, focal seizure or pseudotumor cerebri
--- NOTE | 2025-04-04 13:37 | PC.PT ---
PT eval only. Patient is xI with bed mobility, transfers, and ambulation. Patient is safe to ambulate to the bathroom and in the halls with no AD and no staff. RN made aware.
--- NOTE | 2025-04-04 19:49 | PD.RESPRO ---
Documentation for date of: 04/04/25 Subjective Subjective Interval history: Patient examined at bedside. Vitals are stable, WBCs downtrending 8.6, hemoglobin downtrending 11.8. Chemistry panel unremarkable. A1c 5.7, TG 88, cholesterol 162, LDL 105, TSH 1.98. Patient denies any new symptoms or reoccurring symptoms since admission. Chief complaint of left upper and lower extremity numbness/tingling has resolved. Endorses blurry vision most prominently noticeable in the left eye since past 3 weeks. Blurry vision episodes can last from a few minutes to half a day. Denies using prescription glasses. Family history of stroke positive in mother. She denies taking any medications however endorses high blood pressure during her pregnancies. Has had a total of 6 pregnancies but not placed on any long-term medications. Surgical history positive for bilateral cochlear implants in 2014. Patient had sudden onset hearing loss and workup by ENT specialist were unable to identify underlying cause. CT head negative for acute hemorrhage, mass effect or shift. CTA head/neck negative for stenosis, LVO. Unsure if implants are compatable with in house MRI. Plan to repeat CT head tomorrow morning. Low suspicion of stroke. Continue aspirin 81 mg and atorvastatin 40 mg. EEG results pending. Exam Vital Signs Temp Pulse Resp BP Pulse Ox O2 Del Method 96.6 F L 73 18 125/86 H 96 Room Air 04/04/25 16:00 04/04/25 17:46 04/04/25 17:46 04/04/25 16:00 04/04/25 16:00 04/04/25 16:00 Narrative Exam General: Middle age, obese female, No acute distress, cooperative HEENT: NCAT, No JVD noted. Mucosa moist. Pupils are equal and reactive to light bilaterally Cardiovascular: Normal S1 and S2. Regular rate and rhythm. Respiratory: Lungs are clear to auscultation bilaterally. No wheezing or crackles heard. Abdomen: Soft, nontender, not distended, normal bowel sounds. Skin: Warm to touch, dry, no rashes noted Musculoskeletal: No gross injuries. Able to move all 4 extremities. No pitting edema Neuro: Alert and oriented x3. Cranial nerves: II through XII grossly intact. Speech and language: Normal with no dysarthria or dysphasia. Motor system: Tone and bulk: Normal: Strength: 5 out of 5 in all 4 extremities; No pronator drift noted. Sensory system: Intact to all modalities of sensation bilaterally. Coordination: Intact to [id number] and cygn-edto-[id number] test bilaterally. No intention tremors noted. Gait: Not tested. No signs of meningeal irritation noted. Psych: Normal affect and mood Objective Labs 04/05/25 05:11 04/05/25 05:11 Labs: Laboratory Results - last 24 hr 04/03/25 04/03/25 04/04/25 21:02 22:14 06:02 WBC 11.3 H 8.6 RBC 4.84 4.32 Hgb 13.0 11.8 L Hct 39.5 35.3 L MCV 82 82 MCH 26.9 27.3 MCHC 32.9 33.4 RDW Std Deviation 41.3 41.9 Plt Count 417 254 D Neut % (Auto) 64 62 Lymph % (Auto) 28 29 [place] % (Auto) 6 7 Eos % (Auto) 1 2 Baso % (Auto) 0 1 Neut # (Auto) 7.2 5.3 Lymph # (Auto) 3.2 2.5 [place] # (Auto) 0.7 0.6 Eos # (Auto) 0.1 0.1 Baso # (Auto) 0.1 0.1 Immature Gran # (Auto) 0.03 H 0.03 H Absolute Nucleated RBC 0.00 0.00 Immature Gran % 0 0 Nucleated RBC % 0 0 PT 10.0 INR 0.9 APTT 28.9 Sodium 144 144 Potassium 3.4 3.6 Chloride 107 109 H Carbon Dioxide 27.7 23.3 Anion Gap 9 12 BUN 7 L 5 L Creatinine 0.8 0.6 Estim Creat Clear Calc 107.5 159.3 eGFR > 60 > 60 BUN/Creatinine Ratio 9 L 8 L Glucose [address] Glu mg/dL 117 Hemoglobin A1c 5.7 Calculated Osmolality 286 285 Calcium 9.1 8.3 Corrected Calcium 9.1 Phosphorus 3.1 Magnesium 2.1 2.0 Total Bilirubin 0.4 AST 24 ALT 31 Alkaline Phosphatase 100 Troponin I < 0.020 < 0.002 B-Natriuretic Peptide < 20 Total Protein 7.8 Albumin 4.8 Globulin 3.0 Albumin/Globulin Ratio 1.6 Triglycerides 88 Cholesterol 162 LDL Cholesterol, Calc 105 HDL Cholesterol 39 L Cholesterol/HDL Ratio 4.2 TSH 1.98 HCG, Qual Negative Ur Collection Type Clean Catch Urine Color Lt-Yellow Urine Clarity Clear Urine pH 6.5 Ur Specific [place] < 1.005 Urine Protein Negative Urine Glucose (UA) Negative Urine Ketones Negative Urine Blood Negative Urine Nitrite Negative Urine Bilirubin Negative Urine Urobilinogen (Auto) Negative Ur Leukocyte Esterase Negative Urine RBC 1 Urine WBC < 1 Ur Squamous Epith Cells 1 Urine Bacteria Rare Ur Culture Indicated? Not Indicated Urine Opiates Screen Negative Urine Fentanyl Screen Negative Ur Barbiturates Screen Negative U Amphetamin/Meth Scrn Negative U Benzodiazepines Scrn Negative U Cocaine Metab Screen Negative U Marijuana (THC) Screen Negative Ethyl Alcohol < 3.0 Quality Measures Quality Measures none Assessment & Plan Assessment Current Active Medications: Generic Name Dose Route Start Last Admin Trade Name Freq PRN Reason Stop Dose Admin Acetaminophen 650 mg 04/03/25 22:45 Acetaminophen 325 Mg Tablet PO 05/03/25 22:44 Q6H PRN Fever >100.3 Acetaminophen 650 mg 04/03/25 22:45 04/04/25 14:16 Acetaminophen 325 Mg Tablet PO 05/03/25 22:44 650 mg Q6H PRN Administration PAIN SCALE 1-3 (mild Aspirin 81 mg 04/04/25 09:00 04/04/25 08:40 Aspirin Ec 81 Mg Tabec PO 05/04/25 08:59 81 mg QDAY JAY JAY Administration Atorvastatin Calcium 40 mg 04/04/25 21:00 Atorvastatin Calcium 20 Mg Tablet PO 05/04/25 20:59 HS JAY JAY Heparin Sodium (Porcine) 5,000 unit 04/04/25 06:00 04/04/25 14:18 Heparin Sod Inj 5000 Unit/Ml Vial SC 04/18/25 05:59 5,000 unit Q8HR JAY JAY Administration Ondansetron HCl 4 mg 04/03/25 22:45 Ondansetron Inj 2 Mg/Ml Inj 2 Ml IVP 05/03/25 22:44 Q6H PRN NAUSEA OR VOMITING Protocol Plan 39 y/o female with no PMH presented to the ED 04/03 after an episode of left arm shaking followed by left-sided paresthesias and weakness that lasted about 1 minute while [address]. Symptoms now resolved. LKAW 20:00 on 04/03. NIHSS 0. Admitted for TIA workup. #Left-sided paresthesias, weakness ? resolved #Frontal headache Sudden onset of left-sided paresthesias and weakness, lasting approximately 1 minute, followed by frontal headache and lightheadedness. TIA vs stroke vs migraine vs seziure FHx: Mother with stroke at age 48, unknown risk factors. CT head w/o contrast: Negative for acute hemorrhage, midline shift, or mass effect CTA head/neck w/: Negative for LVO -EEG results pending - plan to repeat CT head tomorrow as part of stroke workup. No need for MRI -continue ASA 81 mg PO daily -continue atorvastatin 40mg daily - Neuro Checks q4h - Aspiration Precautions, Head of bed 30 degrees -follow up out patient for sleep study. The patient's management plan was discussed with my attending physician Dr. Fisher. Yanet Quiroz, PGY-2 Attending Provider Attestation/Addendum I personally have seen and examined the patient at the bedside and I agreed with resident's findings, assessment and plan of care. FU with EEG results; Will do a repeat CT head tomorrow as part of stroke workup as MRI is not possible with cochlear implant -continue ASA 81 mg and atorvastatin 40mg daily
[2025-04-04] MEDS: ATORVASTATIN CALCIUM 20 MG TABLET 40 MG PO (20:34)
[2025-04-05] VITALS: BP 131/70; PULSE 71; RESP 26; TEMP 36.1; O2SAT 96
[2025-04-05 04:00] VITALS: BP 144/86; PULSE 66; PULSE 77; RESP 24; TEMP 36.5; O2SAT 95
[2025-04-05 04:55] VITALS: BMI 44.4
[2025-04-05] MEDS: HEPARIN SOD INJ 5000 UNIT/ML VIAL SC ×2 (05:19→14:04)
[2025-04-05 06:08] LABS: Basophils # (Auto) 0.0 Thou/mm3 (0.0-0.2); Basophils % (Auto) 1 % (0-2.5); Eosinophils # (Auto) 0.2 Thou/mm3 (0.0-0.5); Eosinophils % (Auto) 2 % (0-10); Hematocrit 36.2 % (36.0-46.0); Hemoglobin 12.2 g/dL (12.0-16.0); Immature Granulocytes Auto 0.01 Thou/mm3 (0.00-0.00); Lymphocytes # (Auto) 2.9 Thou/mm3 (1.0-4.8); Lymphocytes % (Auto) 37 % (10-50); Mean Corpuscular HGB Conc 33.7 g/dl (31.0-37.0); Mean Corpuscular Hemoglobin 26.9 pg (25.0-35.0); Mean Corpuscular Volume 80 fL (80-100); Monocytes # (Auto) 0.5 Thou/mm3 (0.0-0.8); Monocytes % (Auto) 6 % (0-12); Neutrophils # (Auto) 4.1 Thou/mm3 (1.8-7.7); Neutrophils % (Auto) 54 % (37-80); Nucleated Red Blood Cell # 0.00 Thou/mm3 (0.00-0.00); Nucleated Red Blood Cell % 0 /100 WBC (0); Platelet Count 280 Thou/mm3 (140-440); RDW Standard Deviation 41.1 fL (36.4-46.3); Red Blood Count 4.53 Miln/mm3 (4.00-5.20); White Blood Count 7.7 Thou/mm3 (3.6-11.0)
[2025-04-05 06:35] LABS: Anion Gap 10 (7-16); BUN/Creatinine Ratio 13 Ratio (12-20); Blood Urea Nitrogen 9 mg/dL (9-23); Calcium 8.8 mg/dL (8.3-10.6); Carbon Dioxide 25.4 mMol/L (20.0-31.0); Chloride 108 mMol/L (98-107); Creatinine (Component) 0.7 mg/dL (0.6-1.3); Estimated Creatinine Clearance 139.3 mL/min (>60); Glucose 107 mg/dL (74-106); Magnesium 2.2 mg/dL (1.6-2.6); Osmolality,Calculated 283 (275-295); Phosphorous 3.7 mg/dL (2.4-5.1); Potassium 3.8 mMol/L (3.4-5.1); Sodium 143 mMol/L (136-145); eGFR > 60 See Note
--- NOTE | 2025-04-05 07:00 | XR_ITS ---
Examination: CT brain head without contrast. 2-D sagittal coronal reconstructions Date and time of exam: April 05, 2025, 0928 hours, comparison April 03, 2025 INDICATIONS: Stroke alert April 03, 2025 CTDI: vol (mGy): 57.6 DLP: (mGycm): 1112 Technique: Multiple CT axial sections of the brain have been obtained, 5 mm slice thickness. Contrast has not been administered. 2-D sagittal, coronal reconstructions have been obtained Low dose protocols were performed. One or more of the following dose reduction techniques were used; automated exposure control, adjustment of the mA and/or KV according to patient size, use of iterative reconstruction technique. Findings: No significant ventricular enlargement. Intra-axial or extra-axial hemorrhage density is not seen. No mass effect or midline shift Basal cisterns are not remarkable. Fourth ventricle is midline. Cranial vault intact. Impression: No interval acute hemorrhage, mass effect or midline shift
[2025-04-05 07:40] VITALS: PULSE 63; RESP 19; RESP 96
[2025-04-05 08:00] VITALS: BP 118/74; PULSE 67; PULSE 87; RESP 16; TEMP 36.1; O2SAT 99
[2025-04-05] MEDS: ASPIRIN EC 81 MG TABEC PO (08:48)
--- NOTE | 2025-04-05 11:34 | PC.SS ---
Stroke screen assessment completed.
--- NOTE | 2025-04-05 11:46 | ESDS_ITS ---
<Statement entered by Pastor Oates MD - 04/08/25 17:19> I reviewed above note and agree with findings and plans. I have also personally examined the patient with medicine team and went over assessment and plan with medical team including recruiting intern and resident physician. Planned Discharge Date 04/05/25 DS: Providers Provider Date of admission: 04/03/25 22:45 Primary care physician: Physician No Primary/Family Admitting Provider: Stoney Sanchez MD Attending Provider on Admission: Chitra Nowak MD Consults: 04/03/25 20:56 Consult to Neurology / Tele-Neurology Routine Comment: Consulting Provider: [facility] 04/03/25 22:49 Referral Physical Therapy Routine Comment: Physician Instructions: 04/03/25 23:21 Consult to Neurology / Tele-Neurology Routine Comment: Consulting Provider: Rob Fisher Attending Provider on DC: Mik Goodwin MD Discharging Provider: Mik Goodwin MD DS: Diagnosis Problem List Completed Was Problem List Reviewed/Reconciled?: Yes Hospital Course Hospital Course Hospital course: 39-year-old female with no significant past medical history other than cochlear implants which were not seen on imaging during current hospitalization presented to the ED on 04/03 with an episode of left arm shaking with left-sided paresthesia and weakness which lasted roughly 2 minutes while she was driving prior to admission. Patient denied having any concerning findings such as palpitations, syncope, presyncope, chest pain, vomiting, vertigo or shortness of breath. In the ED, patient was hypertensive 165/78, but rest of vitals were largely stable. Significant lab work showed WBC 11.3, but coagulation panel, TSH, troponin and chest x-ray were unremarkable. Stroke alert was initiated with an NIH score of 0 and telemetry neuro recommended admission for workup. CT of the head and CTA of the head and neck were negative. Patient was admitted and on repeat examination there was no signs of neurologic deficits. In-house neurology was consulted and since patient had apparent cochlear implants decision was made to just repeat CT head following day to monitor for any signs of ischemia which were not present. Patient will be discharged with the following strict instructions. Please take aspirin 81 mg tablet by mouth daily and atorvastatin 40 mg tablet once a day for TIA Please follow-up with neurologist, Dr. Fisher, within 2 weeks of discharge Please follow-up with your PCP within 1 week of discharge or follow-up at the [facility] [address] [place] [address] If your symptoms worsen or if you develop new chest pain, shortness of breath, weakness or dizziness - please come back to the ED immediately Hospital Diagnosis: #TIA #Stroke-like symptoms #Morbid obesity #History of cochlear implant Mik Goodwin DO PGY-2 Internal Medicine - [facility] Status at Discharge Overall status at discharge: patient is progressing back to baseline Time Spent with Patient Time attestation: Total time spent providing and/or coordinating discharge services: 45 minutes Time spent: Greater than 30 minutes Exam Vital Signs Temp Pulse Resp BP Pulse Ox O2 Del Method 97.0 F 67 16 118/74 99 Room Air 04/05/25 08:00 04/05/25 08:00 04/05/25 08:00 04/05/25 08:00 04/05/25 08:00 04/05/25 08:00 Narrative Exam General: No acute distress, well nourished Eye: PERRL, EOMI, normal conjunctiva, no scleral icterus HENT: Normocephalic, atraumatic, normal hearing, moist oral mucosa Neck: Supple, non-tender, no JVD, no lymphadenopathy Lungs: Clear to auscultation bilaterally, non-labored respirations, symmetric chest rise, no use of accessory muscles Heart: Normal S1 and S2, no S3 or S4 appreciated. Normal rate and regular rhythm, no murmurs, rubs gallops, or edema. Peripheral pulses intact bilaterally, capillary refill brisk distally Abdomen: Soft, non-tender, non-distended, normal bowel sounds. No guarding or rebound tenderness. Musculoskeletal: Normal range of motion and strength, no tenderness or swelling Skin: Skin is warm, dry, no rashes or lesions. Psychiatric: Cooperative, appropriate mood and affect Neuro: Alert and oriented x 3, no focal neurologic deficits, cranial nerves II to XII intact, moving all 4 limbs Discharge Plan Plan Patient Disposition: HOME (Self Care) Care Plan Goals: Please take aspirin 81 mg tablet by mouth daily and atorvastatin 40 mg tablet once a day for TIA Please follow-up with neurologist, Dr. Fisher, within 2 weeks of discharge Please follow-up with your PCP within 1 week of discharge or follow-up at the [facility] [address] [place] [address] If your symptoms worsen or if you develop new chest pain, shortness of breath, weakness or dizziness - please come back to the ED immediately Prescriptions/Referrals Prescriptions/Med Rec: New aspirin 81 mg Tablet,Delayed Release (Dr/Ec) 81 mg PO QDAY 30 Days Qty: 30 0RF atorvastatin [Lipitor] 40 mg tablet 40 mg PO HS 30 Days Qty: 30 0RF Referrals: No Primary/Family,Physician [Primary Care Provider] Rob Fisher MD [Physician, Neurology] Patient/Caregiver Discharge Instructions Education Materials: What Is a TIA? Print Language: Divehi Stand Alone Forms: Kait Award Info., Patient Portal Info Letter, Work/Release Restrictions Discharge Order Discharge Orders: Discharge (Routine); Ordered 04/05/25 Ordered By: Mik Goodwin Quality Discharge Quality Measures VTE prophylaxis
[2025-04-05 12:00] VITALS: BP 131/71; PULSE 75; PULSE 78; RESP 16; TEMP 36.1; O2SAT 97
[2025-04-05 14:48] VITALS: BP 133/85; PULSE 80; RESP 17; TEMP 36.1; O2SAT 96
--- NOTE | 2025-04-05 15:38 | PD.RESPRO ---
Documentation for date of: 04/05/25 Subjective Subjective Interval history: Patient examined at bedside. Vitals are stable, labs unremarkable. No major complaints, walking with no assistance using bathroom, denies any numbness or weakness. EEG results are negative for any seizure activity. Repeat CT head negative for any interval hemorrhage/acute infarct. Continue aspirin 81 mg and atorvastatin 40 mg daily. Follow-up with neurology 1 to 2 weeks after discharge. Exam Vital Signs Temp Pulse Resp BP Pulse Ox O2 Del Method 97.0 F 80 17 133/85 H 96 Room Air 04/05/25 14:48 04/05/25 14:48 04/05/25 14:48 04/05/25 14:48 04/05/25 14:48 04/05/25 14:48 Narrative Exam General: Middle age, obese female, No acute distress, cooperative HEENT: NCAT, No JVD noted. Mucosa moist. Pupils are equal and reactive to light bilaterally Cardiovascular: Normal S1 and S2. Regular rate and rhythm. Respiratory: Lungs are clear to auscultation bilaterally. No wheezing or crackles heard. Abdomen: Soft, nontender, not distended, normal bowel sounds. Skin: Warm to touch, dry, no rashes noted Musculoskeletal: No gross injuries. Able to move all 4 extremities. No pitting edema Neuro: Alert and oriented x3. Cranial nerves: II through XII grossly intact. Speech and language: Normal with no dysarthria or dysphasia. Motor system: Tone and bulk: Normal: Strength: 5 out of 5 in all 4 extremities; No pronator drift noted. Sensory system: Intact to all modalities of sensation bilaterally. Coordination: Intact to voprji-agtb-hyajc and pyqw-jkoe-mhce test bilaterally. No intention tremors noted. Gait: Not tested. No signs of meningeal irritation noted. Psych: Normal affect and mood Objective Labs 04/05/25 05:11 04/05/25 05:11 Labs: Laboratory Results - last 24 hr 04/05/25 05:11 WBC 7.7 RBC 4.53 Hgb 12.2 Hct 36.2 MCV 80 MCH 26.9 MCHC 33.7 RDW Std Deviation 41.1 Plt Count 280 Neut % (Auto) 54 Lymph % (Auto) 37 [place] % (Auto) 6 Eos % (Auto) 2 Baso % (Auto) 1 Neut # (Auto) 4.1 Lymph # (Auto) 2.9 [place] # (Auto) 0.5 Eos # (Auto) 0.2 Baso # (Auto) 0.0 Immature Gran # (Auto) 0.01 H Absolute Nucleated RBC 0.00 Immature Gran % 0 Nucleated RBC % 0 Sodium 143 Potassium 3.8 Chloride 108 H Carbon Dioxide 25.4 Anion Gap 10 BUN 9 Creatinine 0.7 Estim Creat Clear Calc 139.3 eGFR > 60 BUN/Creatinine Ratio 13 Glucose 107 H Calculated Osmolality 283 Calcium 8.8 Phosphorus 3.7 Magnesium 2.2 Quality Measures Quality Measures VTE prophylaxis Assessment & Plan Assessment Current Active Medications: Generic Name Dose Route Start Last Admin Trade Name Freq PRN Reason Stop Dose Admin Acetaminophen 650 mg 04/03/25 22:45 Acetaminophen 325 Mg Tablet PO 05/03/25 22:44 Q6H PRN Fever >100.3 Acetaminophen 650 mg 04/03/25 22:45 04/04/25 14:16 Acetaminophen 325 Mg Tablet PO 05/03/25 22:44 650 mg Q6H PRN Administration PAIN SCALE 1-3 (mild Aspirin 81 mg 04/04/25 09:00 04/04/25 08:40 Aspirin Ec 81 Mg Tabec PO 05/04/25 08:59 81 mg QDAY JAY JAY Administration Atorvastatin Calcium 40 mg 04/04/25 21:00 Atorvastatin Calcium 20 Mg Tablet PO 05/04/25 20:59 HS JAY JAY Heparin Sodium (Porcine) 5,000 unit 04/04/25 06:00 04/04/25 14:18 Heparin Sod Inj 5000 Unit/Ml Vial SC 04/18/25 05:59 5,000 unit Q8HR JAY JAY Administration Ondansetron HCl 4 mg 04/03/25 22:45 Ondansetron Inj 2 Mg/Ml Inj 2 Ml IVP 05/03/25 22:44 Q6H PRN NAUSEA OR VOMITING Protocol Plan 39 y/o female with no PMH presented to the ED 04/03 after an episode of left arm shaking followed by left-sided paresthesias and weakness that lasted about 1 minute while driving. Symptoms now resolved. LKAW 20:00 on 04/03. NIHSS 0. Admitted for TIA workup. #Left-sided paresthesias, weakness ? resolved #Frontal headache Sudden onset of left-sided paresthesias and weakness, lasting approximately 1 minute, followed by frontal headache and lightheadedness. TIA vs stroke vs migraine vs seziure FHx: Mother with stroke at age 48, unknown risk factors. CT head w/o contrast: Negative for acute hemorrhage, midline shift, or mass effect CTA head/neck w/: Negative for LVO EEG results Were negative for any seizure activity - Repeat CT head was negative -continue ASA 81 mg PO daily -continue atorvastatin 40mg daily - Neuro Checks q4h - Aspiration Precautions, Head of bed 30 degrees -follow up out patient for sleep study. The patient's management plan was discussed with my attending physician Dr. Fisher. Yanet Quiroz, PGY-2 Attending Provider Attestation/Addendum I personally have seen and examined the patient at the bedside and I agreed with resident's findings, assessment and plan of care. EEG results Were negative for any seizure activity - Repeat CT head was negative -continue ASA 81 mg PO daily -continue atorvastatin 40mg daily, stable for dc. FU with outpatient sleep study
--- NOTE | 2025-04-06 11:27 | PC.SS ---
Late note 04-05-25: SS met with patient regarding her d/c plan. Pt is alert/oriented. Pt was admitted for Stroke R/O. Pt confirmed demographic and contact information is correct on facesheet. Pt resides with dtr. Pt ambulates independently without assistance or DME. Pt is ok with all ADLs. 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 Patient?s pharmacy of choice is [facility] [address] in [place]. Pt named her aunt Umesh Gilliam medical decision maker if she is unable. Patient?s choice is to return home upon d/c. Pt states not diabetic and is not on dialysis. Pt states she followed up with PCP in December. D/C plan: Return home Next of Kin: Umesh Gilliam, aunt, phone# [phone] PCP: Dennys Migeul in [place] Address: Correct on facesheet
== END 2025-04-05 14:39 | disposition home or self-care (01) ==
LOC: SERX 22:31 → SERHOLD 23:05 → S2NX 04-04 06:02 → SERHOLD 04-04 14:02 → S2NX 04-04 14:03
PROVIDERS: Admitting Provider Internal Medicine; Emergency Provider Emergency Medicine; Visit Provider Student in an Organized Health Care Education/Training Program
DX: G45.9 Transient cerebral ischemic attack, unspecified (principal); E66.01 Morbid (severe) obesity due to excess calories; Z68.41 Body mass index [BMI] 40.0-44.9, adult; Z96.21 Cochlear implant status; I10 Essential (primary) hypertension
CPT/HCPCS: 36415; 36600; 70450; 70496; 70498; 71045; 80048; 80053; 80061; 80307; 80320; 81001; 82803; 83036; 83735; 83880; 84100; 84443; 84484; 84703; 85025; 85610; 85730; 93005; 93306; 95816; 96372; 97161; 99284; A4649; G0378; J1644; J7030; Q9967; A9270; G0480